=== PATIENT | male | born 1955 | race Caucasian/White ===

== ENCOUNTER 2016-11-09 12:15 | Emergency (ER) | payer MEDICAID ==
[2016-11-09] MEDS ORDERED: ACETAMINOPHEN 325 MG TABLET PO ONE (12:42)
--- NOTE | 2016-11-09 12:43 | ER Document Report ---
ED Medical Screen (RME) - General Stated Complaint: FALL/ FACIAL LACERATION Mode of Arrival: Ambulatory Information source: Patient Notes: Patient slipped and fell hitting his face on multiple rounds of a ladder as he fell down. No loss of consciousness. Patient does complain of headache. No nausea or vomiting. Tetanus is currently up-to-date hx: Arthritis I have greeted and performed a rapid initial assessment of this patient. A comprehensive ED assessment and evaluation of the patient, analysis of test results and completion of the medical decision making process will be conducted by additional ED providers. TRAVEL OUTSIDE OF THE [place] IN LAST 30 DAYS: No - Related Data Allergies/Adverse Reactions: No Known Allergies Allergy (Verified 11/09/16 12:39) Past Medical History - Past Medical History Cardiac Medical History: Denies: Hx Coronary Artery Disease Endocrine Medical History: Denies: Hx Diabetes Mellitus Type 1, Hx Diabetes Mellitus Type 2 Musculoskeltal Medical History: Reports Hx Musculoskeletal Trauma - See history of present illness Past Surgical History: Reports: Hx Abdominal Surgery - spleen, Hx Orthopedic Surgery - right hip pins and screws - Immunizations Hx Diphtheria, Pertussis, Tetanus Vaccination: Yes Physical Exam - Skin Skin irregularity: Laceration - left mandibular area Course - Re-evaluation Re-evalutation: 11/09/16 12:[address] Garcia regarding imaging of patient.
[2016-11-09] MEDS ORDERED: LIDOCAINE 1% INJ-PF (10 MG/ML) 30 ML SDV INJ ONE (15:46)
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
[2016-11-09 17:01] VITALS: BP 137/73
== END 2016-11-09 17:02 | disposition home or self-care (01) ==
LOC: ER 12:15
PROC: 0HQ1XZZ Repair Face Skin, External Approach (ICD-10-PCS; principal; 2016-11-09)
DX: S01.81XA Laceration without foreign body of other part of head, initial encounter (principal); W22.8XXA Striking against or struck by other objects, initial encounter; F17.210 Nicotine dependence, cigarettes, uncomplicated
CPT/HCPCS: 99283; 70486; 12013; J3490

== ENCOUNTER 2016-11-24 15:29 | Emergency (ER) | payer MEDICAID ==
--- NOTE | 2016-11-24 15:41 | ER Document Report ---
ED Medical Screen (RME) - General Stated Complaint: FALL HEAD PAIN Notes: 61 yo male fell from scaffolding approx 6ft off ground. fell onto concrete. hit head. no LOC. abrasions to right parietal scalp. ambulatory. c/o pain to left thumb, right shoulder, right chest. not taking any blood thinners. TRAVEL OUTSIDE OF THE [place] IN LAST 30 DAYS: No - Related Data Allergies/Adverse Reactions: No Known Allergies Allergy (Verified 11/09/16 12:39) Past Medical History - Past Medical History Cardiac Medical History: Denies: Hx Coronary Artery Disease Endocrine Medical History: Denies: Hx Diabetes Mellitus Type 1, Hx Diabetes Mellitus Type 2 Renal/ Medical History: Denies: Hx Peritoneal Dialysis Musculoskeltal Medical History: Reports Hx Musculoskeletal Trauma - See history of present illness Past Surgical History: Reports: Hx Abdominal Surgery - spleen, Hx Orthopedic Surgery - right hip pins and screws - Immunizations Hx Diphtheria, Pertussis, Tetanus Vaccination: Yes
[2016-11-24] MEDS ORDERED: OXYCODONE-ACETAMINOPHEN 5-325 MG TABLET PO ONE (17:38)
--- NOTE | 2016-11-24 17:53 | ER Document Report ---
ED Fall - General Chief Complaint: Fall Injury Stated Complaint: FALL HEAD PAIN Time seen by provider: 17:15 Mode of Arrival: Ambulatory Information source: Patient Notes: This 61-year-old male patient comes emergency room complaining of pain to his right shoulder, left thumb, and right top of head. He reports falling off a scaffolding about 6 feet high landing on his right head hitting concrete. There was no loss of consciousness. He reports injuring the right shoulder and left thumb during the fall. This occurred about 12 noon today. He was seen here 2 weeks ago after falling off a ladder and suffering head face injuries and facial lacerations. He works [employer]. TRAVEL OUTSIDE OF THE [place] IN LAST 30 DAYS: No - Related data Allergies/Adverse Reactions: No Known Allergies Allergy (Verified 11/09/16 12:39) Past Medical History - General Information source: Patient, [facility] Records - Social History Smoking Status: Current Every Day Smoker Cigarette use (# per day): Yes Chew tobacco use (# tins/day): No Smoking Education Provided: No Frequency of alcohol use: None Drug Abuse: None Occupation: sheet metal work furnace installer Family History: Reviewed & Not Pertinent Patient has suicidal ideation: No Patient has homicidal ideation: No - Past Medical History Cardiac Medical History: Reports: None Pulmonary Medical History: Reports: None EENT Medical History: Reports: None Neurological Medical History: Reports: None Endocrine Medical History: Reports: None Renal/ Medical History: Reports: None GI Medical History: Reports: None Musculoskeltal Medical History: Reports Hx Musculoskeletal Trauma - See history of present illness Skin Medical History: Reports None Psychiatric Medical History: Reports: None Past Surgical History: Reports: Hx Abdominal Surgery - spleen, Hx Orthopedic Surgery - right hip pins and screws - Immunizations Hx Diphtheria, Pertussis, Tetanus Vaccination: Yes Review of Systems - Review of Systems Constitutional: No symptoms reported EENT: No symptoms reported Cardiovascular: No symptoms reported Respiratory: No symptoms reported Gastrointestinal: No symptoms reported Genitourinary: No symptoms reported Musculoskeletal: See HPI Skin: No symptoms reported Hematologic/Lymphatic: No symptoms reported Neurological/Psychological: No symptoms reported Physical Exam - Vital signs Vitals: Temp Pulse Resp BP Pulse Ox 97.4 F 70 20 134/76 H 96 11/24/16 15:43 11/24/16 15:43 11/24/16 15:43 11/24/16 15:43 11/24/16 15:43 Interpretation: Normal - General General appearance: Appears well, Alert In distress: None - HEENT Head: Normocephalic, Abrasions - The right frontal scalp on top of the head has a large abrasion with contusion and small superficial laceration. The parietal aspect on the top right also has contusion abrasion. He is essentially bald, so there is no hair involved. Eyes: Normal Pupils: PERRL - Respiratory Respiratory status: No respiratory distress - Cardiovascular Rhythm: Regular - Abdominal Inspection: Normal - Back Back: Normal - Extremities General lower extremity: Normal inspection Shoulder: Other - The right shoulder is tender to palpate, he is able to lift his shoulders up and reach behind his head. Hand: Other - The left thumb has tenderness to the MCP ulnar collateral ligament. The ligament is not disrupted but is quite tender to palpate and to stress. - Neurological Neuro grossly intact: Yes - Psychological Associated symptoms: Normal affect, Normal mood - Skin Skin Temperature: Warm Skin Moisture: Dry Skin Color: Normal Course - Re-evaluation Re-evalutation: 11/24/16 18:16 The patient is unwilling to allow any sort of bulky splint to protect the thumb. He plans to return to work using the left hand, as he is left-handed. I have cautioned him against this, explained to him that there is no practical way to splint the involved ligament without a bulky splint. There is no practical way to work with the left hand and protect the involved ligament. He understands and still wants to leave the hand open so that he can return to work. 11/24/16 18:29 After a lengthy discussion, the patient is agreeable to not working for a few days and having the splint applied and then see how he feels Tuesday. 11/24/16 19:38 The radial gutter splint was placed on the left forearm wrist and thumb by the PCT. It fits well, it provides limitation of motion at the thumb MCP joint. It does provide some comfort for the patient. The sling was placed on the left arm after the splinting. - Vital Signs Vital signs: Temp Pulse Resp BP Pulse Ox 98.7 F 62 16 124/72 95 11/24/16 19:01 11/24/16 19:01 11/24/16 19:01 11/24/16 19:01 11/24/16 19:01 - Diagnostic Test Radiology reviewed: Image reviewed, Reports reviewed - The x-ray of the left hand and right shoulder do not show fractures. There is narrowing of the right shoulder sprain joint space suggesting impingement syndrome. CT of the head is unremarkable. Discharge - Discharge Clinical Impression: Fall Qualifiers: Encounter type: initial encounter Qualified Code(s): W19.XXXA - Unspecified fall, initial encounter Shoulder contusion Qualifiers: Encounter type: initial encounter Laterality: right Qualified Code(s): S40.011A - Contusion of right shoulder, initial encounter Gamekeeper's thumb, traumatic, left Qualifiers: Encounter type: initial encounter Qualified Code(s): S63.642A - Sprain of metacarpophalangeal joint of left thumb, initial encounter Condition: Stable Disposition: HOME, SELF-CARE Additional Instructions: Sprained Thumb: You have a sprain of the thumb. A sprain is an over-stretching or tearing of the ligaments which guard the joint. The injury may require a few weeks of protection while it heals. The usual treatment is ice packs, elevation, and rest of the thumb. A splint is usually placed. Because the thumb is more vulnerable to re-injury than the fingers, it often must be protected by a heavy splint for a surprisingly long time. Healing can take three to six weeks. Your physician has assessed the seriousness of the ligament injury in your thumb and has outlined the initial treatment plan. Understand that this treatment may change, depending on how your thumb progresses. If further exams were recommended, it's important that you follow up as instructed. Call the doctor any time if swelling or pain becomes severe, or if numbness develops in the thumb. Shoulder Contusion: Your injury has resulted in a contusion -- a crushing of the deep tissues. No injury to important structures was detected during the physician's exam. Contusions vary in the amount of pain they cause, and in the length of time required for healing. Typically, the area will become bruised, and will remain painful to touch for two or three weeks. However, most patients are back to working and playing within a few days. After the initial period of rest and cold-packs, your symptoms (together with the doctor's recommendations) will determine how rapidly you can get back to full activity. Usually this means "do what feels okay, but don't do things that hurt." If re-examination was recommended, it's important to follow up as instructed. Call the doctor or return any time if pain increases, if swelling becomes severe, if you develop numbness or weakness in an injured extremity, or if any other alarming symptoms occur. Abrasions: An abrasion is a scraping injury of the skin. Some scarring may result. The seriousness of an abrasion is not always obvious at first. Hidden tissue damage may be present and infection may occur despite proper care. Complete healing may take from ten days to as long as a month. The healing time depends on the depth of the abrasion, and on the amount of crushing of underlying tissues from the injury. Keep the wound and dressing clean. Do not shower or bathe the area until okayed by the doctor. If the dressing gets wet, remove it and blot the wound dry, then reapply a clean dressing. Dressings should be changed every day. Sunscreen should be used for six months after the skin is healed. If any signs of infection occur (swelling, redness, increasing tenderness, red streaks, profuse purulent drainage from the abrasion, tender lumps in the armpit or groin above the abrasion, or fever), see the doctor immediately. USE ICE-PACKS ON THE INJURIES TODAY. KEEP THE SCALP INJURIES CLEAN AND COVERED WITH BACITRACIN OR NEOPSPORIN OINTMENT. PROTECT THE LEFT THUMB TO AVOID RE-INJURING THE SPRAINED LIGAMENT. FOLLOW UP WITH A LOCAL MEDICAL DOCTOR OR ORTHOPEDIC DOCTOR IF THE THUMB AND SHOULDER DO NOT IMPROVE. RETURN TO THE EMERGENCY ROOM IF ANY NEW OR WORSENING SYMPTOMS. Prescriptions: Hydrocodone/Acetaminophen [[place] 5-325 mg Tablet] 1 tab PO Q4 PRN #15 tablet PRN Reason:
[2016-11-24] MEDS ORDERED: TRAMADOL HCL 50 MG TABLET PO ONE (17:56)
[2016-11-24 19:02] VITALS: BP 124/72
== END 2016-11-24 19:14 | disposition home or self-care (01) ==
LOC: ER 15:29
DX: S40.011A Contusion of right shoulder, initial encounter (principal); S63.642A Sprain of metacarpophalangeal joint of left thumb, initial encounter; S00.01XA Abrasion of scalp, initial encounter; F17.210 Nicotine dependence, cigarettes, uncomplicated; W11.XXXA Fall on and from ladder, initial encounter
CPT/HCPCS: 70450; 99284

== ENCOUNTER 2016-11-26 19:20 | Emergency (ER) | payer MEDICAID ==
--- NOTE | 2016-11-26 19:55 | ER Document Report ---
ED Medical Screen (RME) - General Stated Complaint: VOMITING, HEADACHE Mode of Arrival: Ambulatory Information source: Patient Notes: Patient was seen 3 days ago after a fall from 6 foot high scaffolding. Patient started to have vomiting yesterday and today. Patient was advised for any worsening to return for a recheck. Patient reports that headache pain seems to have worsened over the past few days. hx: Arthritis, splenectomy I have greeted and performed a rapid initial assessment of this patient. A comprehensive ED assessment and evaluation of the patient, analysis of test results and completion of the medical decision making process will be conducted by additional ED providers. TRAVEL OUTSIDE OF THE [place] IN LAST 30 DAYS: No - Related Data Allergies/Adverse Reactions: No Known Allergies Allergy (Verified 11/09/16 12:39) Past Medical History - Past Medical History Cardiac Medical History: Denies: Hx Coronary Artery Disease Endocrine Medical History: Denies: Hx Diabetes Mellitus Type 1, Hx Diabetes Mellitus Type 2 Renal/ Medical History: Denies: Hx Peritoneal Dialysis Musculoskeltal Medical History: Reports Hx Musculoskeletal Trauma - See history of present illness Past Surgical History: Reports: Hx Abdominal Surgery - spleen, Hx Orthopedic Surgery - right hip pins and screws - Immunizations Hx Diphtheria, Pertussis, Tetanus Vaccination: Yes Physical Exam - Vital signs Vitals: Temp Pulse Resp BP Pulse Ox 98.2 F 78 16 126/74 H 94 11/26/16 19:46 11/26/16 19:46 11/26/16 19:46 11/26/16 19:46 11/26/16 19:46 - Neurological Ellie Coma Scale Eye Opening: Spontaneous Ellie Coma Scale Verbal: Oriented Ellie Coma Scale Motor: Obeys Commands [place] Coma Scale Total: 15 Course - Re-evaluation Re-evalutation: 11/26/16 19:[address] Christianson who recommends repeat CT head imaging given continued complaint. - Vital Signs Vital signs: Temp Pulse Resp BP Pulse Ox 98.2 F 78 16 126/74 H 94 11/26/16 19:46 11/26/16 19:46 11/26/16 19:46 11/26/16 19:46 11/26/16 19:46
[2016-11-26] MEDS ORDERED: ONDANSETRON 4 MG TAB.RAPDIS PO ONE (20:00)
[2016-11-26] MEDS ORDERED: ONDANSETRON ODT 4 MG TAB (6 TAB/DSPK) PO PRN (22:45)
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
[2016-11-26 23:16] VITALS: BP 131/76
== END 2016-11-26 23:16 | disposition home or self-care (01) ==
LOC: ER 19:20
DX: S00.03XD Contusion of scalp, subsequent encounter (principal); R51 Headache; R11.10 Vomiting, unspecified; W17.89XD Other fall from one level to another, subsequent encounter; S22.41XD Multiple fractures of ribs, right side, subsequent encounter for fracture with routine healing; S12.601D Unspecified nondisplaced fracture of seventh cervical vertebra, subsequent encounter for fracture with routine healing; S22.01 Fracture of first thoracic vertebra; V49.9XXD Car occupant (driver) (passenger) injured in unspecified traffic accident, subsequent encounter; F17.200 Nicotine dependence, unspecified, uncomplicated
CPT/HCPCS: 99284; 70450; 72125; L0120; S0119